=== PATIENT | female | born 2000 | race Caucasian/White ===

== ENCOUNTER 2019-04-03 10:59 | Emergency (ER) | payer OTHER ==
--- NOTE | 2019-04-03 12:06 | EDM.PDOCBH ---
ED HPI GENERAL MEDICAL PROBLEM - General Chief Complaint: Behavioral/Psych Stated Complaint: SUICIDAL Time Seen by Provider: 04/03/19 11:09 Source of Information: Reports: Patient History Limitations: Reports: No Limitations - History of Present Illness INITIAL COMMENTS - FREE TEXT/NARRATIVE: 18 yo female presents to ER with suicidal ideation. She has had a very difficult last few months. 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 Last evening she did cut on her thighs and early this morning she took 9 tylenol in an attempt to . She states she "just wants it all over " she does have a hx of depression but has not seen a therapist. She is willing to stay voluntarily. Right Lower Leg Pain Score (Numeric/FACES): 2 - Related Data Allergies Allergy/AdvReac Type Severity Reaction Status Date / Time No Known Allergies Allergy Verified 04/03/19 11:30 Home Meds: Home Meds Sotalol HCl [Sotalol] 1 tab PO BID 04/03/19 [History] Past Medical History Cardiovascular History: Reports: Arrhythmia Neurological History: Reports: Concussion Psychiatric History: Reports: Anxiety, Depression, Panic Attack Dermatologic History: Reports: Other (See Below) Other Dermatologic History: acne Social & Family History - Tobacco Use Smoking Status *Q: Current Every Day Smoker Years of Tobacco use: 4 Packs/Tins Daily: 0.5 Second Hand Smoke Exposure: Yes - Caffeine Use Caffeine Use: Reports: Coffee - Alcohol Use Days Per Week of Alcohol Use: 0 - Recreational Drug Use Recreational Drug Use: No ED ROS GENERAL - Review of Systems Review Of Systems: See Below Constitutional: Denies: Fever, Chills Respiratory: Denies: Shortness of Breath, Wheezing Cardiovascular: Denies: Chest Pain ED EXAM, BEHAVIORAL HEALTH - Physical Exam Exam: See Below Exam Limited By: No Limitations General Appearance: Alert, WD/WN, No Apparent Distress Head: Atraumatic, Normocephalic Neck: Normal Inspection, Supple, Non-Tender, Full Range of Motion. No: Lymphadenopathy (R), Lymphadenopathy (L) Respiratory/Chest: No Respiratory Distress, Lungs Clear. No: Crackles, Rhonchi , Wheezing Cardiovascular: Normal Peripheral Pulses, Regular Rate, Rhythm COURSE, BEHAVIORAL HEALTH COMP - Course Vital Signs: Last Vital Signs Temp 36.7 C 04/03/19 11:30 Pulse 64 04/03/19 11:30 Resp 14 04/03/19 11:30 BP 104/56 L 04/03/19 11:30 Pulse Ox 97 04/03/19 11:30 Orders, Labs, Meds: Laboratory Tests 04/03/19 04/03/19 04/03/19 Range/Units 11:57 12:14 12:14 Sodium 142 (140-148) mmol/L Potassium 4.0 (3.6-5.2) mmol/L Chloride 105 (100-108) mmol/L Carbon Dioxide 24 (21-32) mmol/L Anion Gap 12.6 (5.0-14.0) mmol/L BUN 10 (7-18) mg/dL Creatinine 0.7 (0.6-1.0) mg/dL Est Cr Clr Drug Dosing 93.90 mL/min Estimated GFR (MDRD) > 60 (>60) Glucose 80 (74-106) mg/dL Calcium 8.8 (8.5-10.1) mg/dL Total Bilirubin 0.3 (0.2-1.0) mg/dL AST 23 (15-37) U/L ALT 14 (12-78) U/L Alkaline Phosphatase 66 (46-116) U/L Total Protein 7.9 (6.4-8.2) g/dL Albumin 4.2 (3.4-5.0) g/dL Globulin 3.7 H (2.3-3.5) g/dL Albumin/Globulin Ratio 1.1 L (1.2-2.2) Salicylates 1.0 L (2.0-20.0) mg/dL Urine Opiates Screen Negative (NEGATIVE) Ur Oxycodone Screen Negative (NEGATIVE) Urine Methadone Screen Negative (NEGATIVE) Ur Propoxyphene Screen Negative (NEGATIVE) Acetaminophen 94.0 H (10.0-30.0) ug/mL Ur Barbiturates Screen Negative (NEGATIVE) Ur Tricyclics Screen Negative (NEGATIVE) Ur Phencyclidine Scrn Negative (NEGATIVE) Ur Amphetamine Screen Negative (NEGATIVE) U Methamphetamines Scrn Negative (NEGATIVE) Urine MDMA Screen Negative (NEGATIVE) U Benzodiazepines Scrn Negative (NEGATIVE) U Cocaine Metab Screen Negative (NEGATIVE) U Marijuana (THC) Screen Negative (NEGATIVE) 04/03/19 Range/Units 13:55 Sodium (140-148) mmol/L Potassium (3.6-5.2) mmol/L Chloride (100-108) mmol/L Carbon Dioxide (21-32) mmol/L Anion Gap (5.0-14.0) mmol/L BUN (7-18) mg/dL Creatinine (0.6-1.0) mg/dL Est Cr Clr Drug Dosing mL/min Estimated GFR (MDRD) (>60) Glucose (74-106) mg/dL Calcium (8.5-10.1) mg/dL Total Bilirubin (0.2-1.0) mg/dL AST (15-37) U/L ALT (12-78) U/L Alkaline Phosphatase (46-116) U/L Total Protein (6.4-8.2) g/dL Albumin (3.4-5.0) g/dL Globulin (2.3-3.5) g/dL Albumin/Globulin Ratio (1.2-2.2) Salicylates (2.0-20.0) mg/dL Urine Opiates Screen (NEGATIVE) Ur Oxycodone Screen (NEGATIVE) Urine Methadone Screen (NEGATIVE) Ur Propoxyphene Screen (NEGATIVE) Acetaminophen 73.1 H (10.0-30.0) ug/mL Ur Barbiturates Screen (NEGATIVE) Ur Tricyclics Screen (NEGATIVE) Ur Phencyclidine Scrn (NEGATIVE) Ur Amphetamine Screen (NEGATIVE) U Methamphetamines Scrn (NEGATIVE) Urine MDMA Screen (NEGATIVE) U Benzodiazepines Scrn (NEGATIVE) U Cocaine Metab Screen (NEGATIVE) U Marijuana (THC) Screen (NEGATIVE) Re-Assessment/Re-Exam: tylenol was taken this morning at initially it was stated that this occurred at 8:00 so lab was drawn at 12:00 but later it was determined that the time was closure to 10:00 follow-up acetaminophen draw at 1400 this level is less then previous clearing her medically for placement. eval team arrived and talked with determined pt need for placement due to risk of self harm Departure - Departure Time of Disposition: 14:44 Disposition: DC/Tfer to Psych Hosp/Unit 65 Condition: Good Clinical Impression: Depressive disorder, Suicidal intent - Discharge Information *PRESCRIPTION DRUG MONITORING PROGRAM REVIEWED*: Not Applicable *COPY OF PRESCRIPTION DRUG MONITORING REPORT IN PATIENT [place]: Not Applicable Referrals: PCP,None [Primary Care Provider] - Forms: ED Department Discharge Additional Instructions: placement
== END 2019-04-03 17:58 ==
LOC: JP.ED 10:59
DX: F32.9 Major depressive disorder, single episode, unspecified (principal); F17.210 Nicotine dependence, cigarettes, uncomplicated; Z79.899 Other long term (current) drug therapy
CPT/HCPCS: 36415; 80053; 80305-QW; 99285; G0480

== ENCOUNTER 2019-11-16 05:50 | Emergency (ER) | payer OTHER ==
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
== END 2019-11-16 07:55 | disposition home or self-care (01) ==
LOC: JP.ED 05:50
DX: F32.9 Major depressive disorder, single episode, unspecified (principal); F41.9 Anxiety disorder, unspecified; Z79.899 Other long term (current) drug therapy
CPT/HCPCS: 36415; 80053; 80305-QW; 80307; 81001; 81025; 85025; 99285

== ENCOUNTER 2021-10-22 23:26 | Emergency (ER) | payer SELFPAY | END 2021-10-23 04:19 | disposition home or self-care (01) | LOC: JP.ED 23:26 | DX: I49.8 Other specified cardiac arrhythmias (principal); E03.8 Other specified hypothyroidism | CPT/HCPCS: 36415; 80048; 81025; 83735; 84439; 84443; 84484; 85025; 93005; 93010; 99284; 99285-25 ==

== ENCOUNTER 2022-10-24 00:13 | Emergency (ER) | payer BC ==
[2022-10-24 00:53] LABS: ESTIMATED GFR 105 mL/min (>60); TROPONIN I HIGH SENSITIVITY 6.9 pg/mL (<=60.3)
[2022-10-24] MEDS ORDERED: Metoprolol Tartrate 25 MG Tab PO ONE (01:31)
== END 2022-10-24 03:26 | disposition home or self-care (01) ==
LOC: JP.ED 00:13
DX: E07.81 Sick-euthyroid syndrome (principal); I47.9 Paroxysmal tachycardia, unspecified; R00.8 Other abnormalities of heart beat
CPT/HCPCS: 36415; 80053; 83735; 84439; 84443; 84484; 85025; 93005; 99285; A9270; 93010; 99284